=== PATIENT | female | born 1995 | race African-American/Black ===

== ENCOUNTER → 2021-06-26 | Outpatient (CLI) | payer BC, OTHER ==
[~2021-06-26] MED LIST: LIDO5DIS41 TD
[2021-06-26 15:41] LABS: BASO % 0.4 % (0.0-1.0); EOS # 0.1 10^3/uL (0.0-0.5); EOS % 1.9 % (0.0-3.0); HEMOGLOBIN 12.4 g/dl (12.0-15.5); LYMPH # 3.3 10^3/uL (1.5-5.0); LYMPH % 44.6 % (24.0-44.0); MEAN CORPUSCULAR HEMOGLOBIN 25.4 pg (27.0-33.0); MEAN CORPUSCULAR HGB CONC 31.8 g/dl (32.0-36.5); MEAN CORPUSCULAR VOLUME 79.9 fl (80.0-96.0); MONO # 0.5 10^3/uL (0.0-0.8); MONO % 6.9 % (2.0-8.0); NEUTROPHILS # 3.4 10^3/uL (1.5-8.5); NEUTROPHILS % 45.9 % (36.0-66.0); PLATELET COUNT, AUTOMATED 253 10^3/uL (150-450); RED BLOOD COUNT 4.88 10^6/uL (4.00-5.40); WHITE BLOOD COUNT 7.4 10^3/uL (4.0-10.0)
[2021-06-26 15:47] LABS: INR 0.96; PROTHROMBIN TIME 13.2 SECONDS (12.7-14.5)
[2021-06-26 15:48] LABS: PARTIAL THROMBOPLASTIN TIME 34.1 SECONDS (25.9-37.0)
[2021-06-26 16:02] LABS: BLOOD UREA NITROGEN 12 MG/DL (7-18); CALCIUM LEVEL 9.1 MG/DL (8.5-10.1); CARBON DIOXIDE LEVEL 27 MEQ/L (21-32); CHLORIDE LEVEL 111 MEQ/L (98-107); CREATININE FOR GFR 0.91 MG/DL (0.55-1.30); GLOMERULAR FILTRATION RATE > 60.0 (>60); GLUCOSE, FASTING 123 MG/DL (70-100); SODIUM LEVEL 141 MEQ/L (136-145)
--- NOTE | 2021-06-26 16:38 | ECGEPIP ---
[facility] Test Date: 2021-06-26 Pat Name: MALINI HERNANDEZ Department: Room: - Gender: Female [employer]: rf : 1995 Requested By: Julián Pantoja Order Number: [id number] Reading MD: Roro Us Measurements Intervals [place] Rate: 105 P: 22 IN: 130 QRS: 34 QRSD: 84 T: 16 QT: 328 QTc: 433 Interpretive Statements Sinus tachycardia EARLY REPOLAR CHANGES NOT APPARENT AND RATE SLOWER C/W 06/27/19 BORDERLINE PRECORDIAL VOLTAGE NEW Electronically Signed on 06-26-2021 16:37:50 EST by Roro Us
== END ==
LOC: M EKG 14:20
PROVIDERS: ATTEND Thoracic Surgery (Cardiothoracic Vascular Surgery)
DX: K21.9 Gastro-esophageal reflux disease without esophagitis (principal)

== ENCOUNTER → 2021-07-18 | Outpatient (CLI) | payer BC, OTHER ==
[~2021-07-18] MED LIST changes: +[UNRECOGNIZED DRUG - OTHER] PO
== END ==
LOC: M RAD 14:11
PROVIDERS: ATTEND Thoracic Surgery (Cardiothoracic Vascular Surgery)
DX: K44.9 Diaphragmatic hernia without obstruction or gangrene (principal)

== ENCOUNTER 2021-08-05 21:00 | Emergency (ER) | payer BC, OTHER ==
[~2021-08-05] VITALS: Ht 162.6 cm; Wt 97.7 kg
[~2021-08-05 21:00] MED LIST changes: -[UNRECOGNIZED DRUG - OTHER] PO
[2021-08-05 21:01] VITALS: BP 121/69
[2021-08-05] MEDS ORDERED: [UNRECOGNIZED DRUG - OTHER] PO (21:11)
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
== END 2021-08-05 23:08 | disposition left against medical advice (07) ==
LOC: M ED 21:00
DX: Z53.21 Procedure and treatment not carried out due to patient leaving prior to being seen by health care provider (principal)